=== PATIENT | male | born 1970 | race Caucasian/White ===

== ENCOUNTER 2020-12-05 02:00 | Emergency (ER) | payer MEDICAID, OTHER ==
[~2020-12-05] VITALS: Ht 182.9 cm; Wt 113.4 kg
[2020-12-05] MEDS ORDERED: HYDROcodone-ACET 5/325MG TAB PO ONE (03:15)
[2020-12-05] MEDS ORDERED: IBUPROFEN 400 MG TAB PO ONE (06:00)
[2020-12-05] MEDS ORDERED: ACETAMINOPHEN 325 MG TAB PO ONE (06:00)
[2020-12-05] MEDS ORDERED: LIDOCAINE 2% JELLY 11ml (GLYDO) TOP ONE (09:45)
[2020-12-05] MEDS ORDERED: MORPHINE SULFATE 4 MG/ML SYR/VIAL IV ONE ×2 (09:45→13:15)
[2020-12-05] MEDS ORDERED: ONDANSETRON HCL 4 MG/2 ML VIAL IV ONE ×2 (09:45→17:15)
[2020-12-05 12:18] LABS: Potassium 3.5 mmol/L (3.5-5.1)
[2020-12-05 12:25] LABS: Basophils # (auto) 0.1 10 ^3/uL (0-0.2); Basophils % (auto) 0.9 % (0.0-2.0); Eosinophils # (auto) 0.1 10 ^3/uL (0-0.8); Eosinophils % (auto) 2.4 % (0.0-7.0); Hemoglobin 13.4 g/dL (13.5-17.5); Lymphocytes # (auto) 1.7 10 ^3/uL (0.4-5.4); Lymphocytes % (auto) 28.2 % (10.0-50.0); Mean Corpuscular Hemoglobin 30.9 pg (28.0-32.0); Mean Corpuscular Hgb Conc. 35.2 g/dL (32.0-36.0); Mean Corpuscular Volume 87.7 fL (80.0-100.0); Monocytes # (auto) 0.8 10 ^3/uL (0-1.3); Monocytes % (auto) 12.3 % (0.0-12.0); Neutrophils # (auto) 3.5 10 ^3/uL (1.6-8.6); Neutrophils % (auto) 56.2 % (37.0-80.0); Nucleated Red Blood Cells % 0.3 %; Red Blood Cells 4.33 10^6/uL (4.5-5.90); Red Cell Distribution Width 13.8 % (11.8-14.3); White Blood Cell 6.2 10^3/uL (4.4-10.8)
[2020-12-05 12:31] LABS: Albumin 2.9 g/dL (3.4-5.0); BUN/Creatinine Ratio 12.9; Calcium 8.5 mg/dL (8.5-10.1); Total Protein 7.4 g/dL (6.4-8.2)
[2020-12-05 12:57] LABS: Bilirubin, Total 0.5 mg/dL (0.2-1.0)
[2020-12-05 16:50] LABS: INR 1.06 (0.9-1.15); Partial Thromboplastin Time 26.3 sec (23.0-31.2)
[2020-12-05] MEDS ORDERED: ONDANSETRON HCL 4 MG/2 ML VIAL ONE (17:04)
[2020-12-05] MEDS ORDERED: HYDROmorphone HCL 2 MG/ML VL ONE (17:05)
[2020-12-05] MEDS ORDERED: SODIUM CHLORIDE 0.9% 1,000 ML IV ONE (17:15)
[2020-12-05] MEDS ORDERED: HYDROmorphone HCL 2 MG/ML VL IV ONE (17:15)
[2020-12-05 21:54] VITALS: BP 136/85
== END 2020-12-05 22:14 | disposition short-term general hospital (02) ==
LOC: ER 02:00
DX: K62.3 Rectal prolapse (principal); R94.31 Abnormal electrocardiogram [ECG] [EKG]; Z98.890 Other specified postprocedural states; Z20.822 Contact with and (suspected) exposure to COVID-19
CPT/HCPCS: 36415; 71045; 80053; 83605; 85025; 85610; 85730; 87040; 87426; 93005; 96361; 96374; 96375; 96376; 99285; C9803; J1170; J2270; J2405; U0003